=== PATIENT | male | born 2005 | race Caucasian/White ===

== ENCOUNTER 2025-05-12 16:32 | Emergency (ER) | payer OTHER, BC ==
[~2025-05-12] VITALS: Ht 172.7 cm; Wt 78.0 kg
[2025-05-12 17:00] VITALS: O2SAT 100
[2025-05-12 19:00] VITALS: TEMP 36.9
[2025-05-12 19:11] LABS: BASOPHILS % 0.3 % (0.0-2.0); EOSINOPHILS % 0.6 % (0.0-5.0); HEMATOCRIT. 46.2 % (42.0-52.0); HEMOGLOBIN. 15.8 g/dL (14.0-18.0); LYMPHOCYTES % 19.3 % (20.0-50.0); MEAN PLATELET VOLUME 7.9 fl (7.4-10.4); MONOCYTES % 8.3 % (2.0-8.0); NEUTROPHILS % 71.5 % (40.0-76.0); PLATELET 333 x1000/uL (130-400); RED BLOOD CELL COUNT 5.14 mill/uL (4.7-6.1); RED CELL DISTRIBUTION WIDTH 14.0 % (11.6-14.6)
[2025-05-12 19:21] LABS: CREATININE 1.1 mg/dL (0.6-1.3); ETHANOL BLOOD < 10 mg/dL (<10); UREA NITROGEN BLOOD 18 mg/dL (9-23)
[2025-05-12 19:26] LABS: INR 1.0
[2025-05-12] MEDS ORDERED: MORPHINE SULFATE 2 MG/ML INJ (NOT FOR IM USE) IV ONE (20:00)
[2025-05-12] MEDS: ONDANSETRON HCL 4MG/2ML INJ IV ONE (20:27)
[2025-05-12] MEDS: KETOROLAC 30MG/ML VIAL IV ONE (20:27)
[2025-05-12] MEDS: METHOCARBAMOL 500MG TABLET PO ONE (20:27)
[2025-05-12] MEDS ORDERED: IBUP-2029 MT (20:28)
[2025-05-12] MEDS ORDERED: CYCL5TAB3 MT (20:28)
[2025-05-12 21:38] VITALS: BP 117/63; PULSE 64; RESP 13; O2SAT 99
== END 2025-05-12 21:56 | disposition home or self-care (01) ==
LOC: ER 16:32
DX: S09.8XXA Other specified injuries of head, initial encounter (principal); M79.641 Pain in right hand; G44.309 Post-traumatic headache, unspecified, not intractable; V89.2XXA Person injured in unspecified motor-vehicle accident, traffic, initial encounter; Y93.89 Activity, other specified; Y92.410 Unspecified street and highway as the place of occurrence of the external cause; Y99.8 Other external cause status
CPT/HCPCS: 80048; 80320; 85025; 85610; 85730; 86850; 86900; 86901; 36415; 71045; 73130; 70450; 71260; 72125; 74177; 96374; 96375; 99285; Q9967; J1885; J2405; G0480